=== PATIENT | female | born 1995 | race Caucasian/White ===

== ENCOUNTER → 2024-01-09 | Emergency (ER) | payer OTHER ==
[~2024-01-09] VITALS: Ht 165.1 cm; Wt 86.0 kg
[2024-01-09 19:59] VITALS: BP 108/67; PULSE 77; RESP 18; TEMP 97.7
[2024-01-09 21:07] LABS: COVID AG,FIA SOURCE NASAL SWAB
[2024-01-09 21:29] LABS: SARS-COV2 (COVID) ANTIGEN,FIA Negative (Negative)
[2024-01-09 21:31] LABS: INFLUENZA TYPE A NEGATIVE FOR TYPE A (NEGATIVE); INFLUENZA TYPE B NEGATIVE FOR TYPE B (NEGATIVE)
== END | disposition still patient (30) ==
LOC: EMS 19:50
DX: R50.9 Fever, unspecified (principal); R05.9 Cough, unspecified; Z20.822 Contact with and (suspected) exposure to COVID-19; Z53.21 Procedure and treatment not carried out due to patient leaving prior to being seen by health care provider
CPT/HCPCS: 87804; 99281; Z7502

== ENCOUNTER → 2024-09-09 | Emergency (ER) | payer OTHER ==
[~2024-09-09] VITALS: Ht 162.6 cm; Wt 84.1 kg
[2024-09-09 20:56] VITALS: BP 121/85; PULSE 69; RESP 14; TEMP 98.2; O2SAT 100
== END | disposition still patient (30) ==
LOC: EMS 20:48
DX: Z53.21 Procedure and treatment not carried out due to patient leaving prior to being seen by health care provider (principal)